=== PATIENT | female | born 2005 | race Caucasian/White ===

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

== ENCOUNTER 2024-07-09 18:56 | Emergency (ER) | payer BC ==
[~2024-07-09] VITALS: Ht 172.7 cm; Wt 104.3 kg
[~2024-07-09 18:56] MED LIST changes: +CYCLOBENZAPRINE10 MG PO; +PREDNISONE20 M1 PO
[2024-07-09] MEDS ORDERED: Tdap Vaccine 0.5 ML SYR (Adult Vaccine) IM ONE (19:25)
[2024-07-09] MEDS ORDERED: Bacitracin Zinc 14 GM TUBE T ONE (20:20)
== END 2024-07-09 20:40 | disposition home or self-care (01) ==
LOC: ED 18:56
DX: S91.312A Laceration without foreign body, left foot, initial encounter (principal); Z79.899 Other long term (current) drug therapy; W26.0XXA Contact with knife, initial encounter; Y93.89 Activity, other specified; Y92.89 Other specified places as the place of occurrence of the external cause; Y99.8 Other external cause status